=== PATIENT | female | born 1945 | race Caucasian/White ===

== ENCOUNTER 2023-11-27 08:32 | Emergency (ER) | payer MEDICARE, MEDICAID, SELFPAY ==
[2023-11-27 08:46] VITALS: BP 141/84; PULSE 80; RESP 16; TEMP 36.6; O2SAT 96; BMI 23.8
--- NOTE | 2023-11-27 09:41 | ED_ITS ---
HPI - General Adult General Chief complaint: Upper Respiratory Symptoms Stated complaint: cough Time Seen by Provider: 11/27/23 09:14 History of Present Illness HPI narrative: patient complains of 2 weeks of runny nose and mild cold or allergy symptoms with a cough that developed several days ago and is getting worse with mild sputum, no shortness of breath no chest pain no dizziness no confusion no sore throat no difficulty swallowing no leg pain no calf swelling no leg swelling no abdominal pain no nausea vomiting or diarrhea Related Data Previous Rx's ?Medication ?Instructions ?Recorded benzonatate 200 mg capsule 200 mg PO BID PRN cough #14 caps 11/27/23 doxycycline hyclate 100 mg tablet 100 mg PO BID #14 tabs 11/27/23 Allergies Allergy/AdvReac Type Severity Reaction Status Date / Time azithromycin Allergy Facial Verified 11/27/23 08:48 Swelling bee pollen [bee stings] Allergy Anaphylaxis Verified 11/27/23 08:48 PMF Past Medical History Source: nursing notes reviewed Social History Social History Advance Directives: No Advance Directives Information Provided: No Physical Exam ED Vital Signs: Vital Signs - 24 hr 11/27/23 08:46 11/27/23 09:51 Temperature 97.9 F 97.9 F Pulse Rate 80 80 Respiratory Rate 16 16 Blood Pressure 141/84 H 141/84 H Pulse Oximetry 96 96 Oxygen Delivery Method Room Air Room Air BMI result Body Mass Index 23.8 general appearance no distress comfortable cooperative speaking full sentences The eyes no redness or discharge The pharynx is clear no redness swelling or exudate voice normal The neck is supple Chest is clear to auscultation with full symmetrical equal breath sounds Heart no murmur Extremities full range motion x4 Course Course Course Narrative: COVID flu and chest x-ray were ordered but patient refused them as she had some where to go She is very well-appearing hand and understands why I recommended the test but she feels she has to go and she is prescribed an antibiotic for bronchitis She has an aqac-ooz-[id number] allergy medicine at home, she asked for Tessalon Perles and was given a prescription Well-appearing ambulates easily breathing comfortably and discharged Discharge Plan Discharge Clinical Impression: Bronchitis, Allergies Patient Disposition: Home, Self-Care Additional Instructions: we are treating for bronchitis and allergies You already have an allergy medicine at home so continue taking that, you can use Tessalon Perles for cough, as your cold is developing into a worsening cough I prescribed doxycycline it clean for bronchitis, antibiotic Return any time for difficulty breathing any worse condition or any concerns Today her lungs were clear and her vital signs including oxygen level were normal Prescriptions: New doxycycline hyclate 100 mg tablet 100 mg PO BID Qty: 14 0RF benzonatate 200 mg capsule 200 mg PO BID PRN (Reason: cough) Qty: 14 0RF Discharge Date/Time: 11/27/23 09:51 Print Language: Wallisian
--- NOTE | 2023-11-27 09:43 | PC.NURSE ---
pt refusing for swabs to be obtained/xray to be completed. provider notified/aware.
--- NOTE | 2023-11-27 09:50 | PC.NURSE ---
pt received script from ED provider. provider went over d/c paperwork. pt left facility.
[2023-11-27 09:51] VITALS: BP 141/84; PULSE 80; RESP 16; TEMP 36.6; O2SAT 96
== END 2023-11-27 09:54 | disposition home or self-care (01) ==
PROVIDERS: Emergency Provider Student in an Organized Health Care Education/Training Program
DX: J40 Bronchitis, not specified as acute or chronic (principal); J30.89 Other allergic rhinitis; R05.9 Cough, unspecified
CPT/HCPCS: 99282; 99283

== ENCOUNTER 2025-01-30 10:02 | Emergency (ER) | payer MEDICARE, MEDICAID, SELFPAY ==
--- NOTE | ~2025-01-30 | CT_ITS ---
EXAMINATION: CT ABDOMEN PELVIS WITHOUT IV CONTRAST HISTORY: upper abd pain x2 wks. COMPARISON: There are no prior studies available for comparison. TECHNIQUE: CT scan of the abdomen and pelvis was performed without contrast using standard departmental protocol. Coronal and sagittal reformatted images were generated and reviewed. Oral contrast material was not administered at the request of the referring physician. This CT exam was performed with one or more of the following dose reduction techniques: automated exposure control, adjustment of the mA and/or kV according to patient size, use of iterative reconstruction technique. DLP: 373 mGy-cm FINDINGS: LOWER CHEST: The visualized lung bases are clear. There is no pleural effusion. CARDIOVASCULATURE: The heart is normal in size. There is no pericardial effusion. LIVER: The liver is normal in size and contour. There is a subcentimeter hypodensity in the left lobe is small to accurately characterize. GALLBLADDER / BILE DUCTS: The gallbladder is unremarkable. There is no intra or extrahepatic biliary ductal dilatation. SPLEEN: The spleen is normal in size and has an unremarkable unenhanced appearance. PANCREAS: The pancreas has an unremarkable unenhanced appearance. ADRENAL GLANDS: Unremarkable. KIDNEYS/RETROPERITONEUM: No renal calculi are identified. There is no hydronephrosis. LYMPH NODES: No retroperitoneal lymphadenopathy is identified in the abdomen or pelvis. VASCULATURE: The abdominal aorta is normal in caliber. MESENTERY/PERITONEUM: No free fluid. No masses. There is no free intraperitoneal gas. STOMACH: There is a small hiatal hernia. SMALL BOWEL: The small bowel is normal in caliber. COLON: There is a large amount of stool throughout the colon. APPENDIX: The appendix is not seen, however no inflammatory changes are seen adjacent to the cecum. URINARY BLADDER/PELVIC ORGANS: The urinary bladder is unremarkable. The uterus has an unremarkable unenhanced appearance. 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 There is an old fracture deformity of the right pubic symphysis. CT/CT abdomen pelvis wo IV con IMPRESSION: Small hiatal hernia. Large amount of stool throughout the colon. Electronically signed by: Stephen Porter MD 01/30/2025 12:06 PM EDT
[2025-01-30 10:05] VITALS: BP 202/84; PULSE 92; RESP 19; TEMP 36.6; O2SAT 98; BMI 24.1
[2025-01-30 10:33] VITALS: BP 152/85; PULSE 89; RESP 16; O2SAT 96
--- NOTE | 2025-01-30 10:40 | PC.NURSE ---
Pt comes to ED today with c/ severe bloating x2 weeks after eating and decrease in BM volume. She reports she typically has very healthy BMs but she describes her current BMs as pellets. She denies trying any OTC medications for her GI symptoms as she fears this would make her symptoms worse. She also reports increased stress and anxiety in her life lately and feels this may be the cause of her symptoms. She denies n/v. She reports she has not changed her eating habits and has not had difficulty eating or drinking. A&Ox3 VSS Skin is warm and dry Breaths and speech are even and unlabored. NAD at this time. Awaiting ED provider
--- NOTE | 2025-01-30 11:18 | ECG_ITS ---
Test Reason : epigastric pain Blood Pressure : */* mmHG Vent. Rate : 74 BPM Atrial Rate : 74 BPM P-R Int : 180 ms QRS Dur : 84 ms QT Int : 382 ms P-R-T Axes : 42 -12 16 degrees QTcB Int : 424 ms Normal sinus rhythm Moderate voltage criteria for LVH, may be normal variant ( R in aVL , Chuy product ) Borderline ECG No previous ECGs available Referred By: Amairani Ware Electronically Signed By: ISAI SHEPPARD MD
--- NOTE | 2025-01-30 11:19 | ED_ITS ---
HPI - Abdominal Pain General Chief Complaint: Abdominal Pain Stated Complaint: Abd bloating Time Seen by Provider: 01/30/25 11:08 Source: patient Mode of arrival: ambulatory Limitations: no limitations History of Present Illness ED Provider: DR. Ware HPI narrative: 79-year-old female walked into the emergency department for evaluation of upper abdominal pain started 2 weeks ago pain is described as discomfort in the epigastric and upper abdomen area after food patient feels bloated after every meals she eat, patient also noted change in her bowel movement that is becoming more frequent and small, no change in the stool color last bowel movement was this morning, patient is passing flatus normally, no nausea, no vomiting, no fever, no weight loss, no dysuria, no frequency urination, no blood in the urine. No CP, no SOB. Past abdominal surgery significant for appendectomy. Patient is from [facility] in [place] visiting her brother for short time then going back home, Patient thinks that her symptoms is related to life stress and patient currently is going through stress. Related Data Previous Rx's ?Medication ?Instructions ?Recorded benzonatate 200 mg capsule 200 mg PO BID PRN cough #14 caps 11/27/23 doxycycline hyclate 100 mg tablet 100 mg PO BID #14 ta bs 11/27/23 Allergies Allergy/AdvReac Type Severity Reaction Status Date / Time bee pollen (bee stings) Allergy Anaphylaxis Verified 11/27/23 08:48 erythromycin base Allergy Unknown Verified 01/30/25 10:07 Review of Systems Review of Systems All other systems are reviewed and are negative Constitutional: Reports as per HPI and Reports no additional constitutional complaints Eyes: Reports as per HPI and Reports no additional eye complaints Reports system reviewed and no additional complaints, except as documented Cardiovascular: Reports as per HPI and Reports no additional cardiovascular complaints Respiratory: Reports as per HPI and Reports no additional respiratory complaints Gastrointestinal: Reports as per HPI and Reports no additional gastrointestinal complaints Genitourinary: Reports no additional female genitourinary complaints Musculoskeletal: Reports no additional musculoskeletal complaints Skin/Breast: Reports system reviewed and no additional complaints, except as docu Psychiatric: Reports no additional psychiatric complaints Endocrine: Reports no additional endocrine complaints Hematologic/Lymphatic: Reports no additional hematologic/lymphatic complaints Allergic/Immunologic: Reports no additional allergic/immunologic complaints Reports system reviewed and no additional complaints, except as documented and Reports Abnormal speech present [facility] Social History Social History Smoked in Last 30 Days: No Use of substances other than those prescribed or required for medical reasons: No Advance Directives: No Advance Directives Information Provided: No Do you have a plan to hurt others: No Plan Physical Exam ED Vital Signs: Vital Signs - 24 hr 01/30/25 10:05 01/30/25 10:33 Temperature 98 F Pulse Rate 92 89 Respiratory Rate 19 16 Blood Pressure 202/84 H 152/85 H Pulse Oximetry 98 96 Oxygen Delivery Method Room Air Room Air BMI result Body Mass Index 24.1 Vital signs have been reviewed and appear to be correct. Blood pressure elevated. Heart rate normal. Respiratory rate normal. Temperature normal. Oxygen saturation normal. Appearance: Alert. Oriented X3. No acute distress. Head: Normal external exam. Normocephalic. Atraumatic. No Ruth signs noted. No raccoon eyes noted Eyes: PERRLA. EOMI. Conjunctiva and sclera normal. Eyelids normal. ENT: TM's Normal. Pharynx normal. Uvula midline. Moist mucous membranes. No trismus noted. No drooling noted. No muffled voice noted. Neck: Normal inspection. Neck supple. FROM. No adenopathy. Thyroid Normal. No meningeal signs. No neck mass noted. CVS: Normal heart rate and rhythm. Heart sound normal. No murmurs noted. Pulses normal throughout. Respiratory: No respiratory distress. Painless inspiration. Breath sounds normal. No wheezes/rales/rhonchi noted. Chest nontender. No accessory muscle usage noted or decreased air movement noted. Abdomen: Soft and nontender. Bowel sounds normal in all 4 quadrants. No distention noted. No organomegaly noted. No visible injury noted. Back: No CVA tenderness. Full range of motion noted. Skin: Skin warm and dry. Normal skin color. Normal skin turgor. No rashes/lesions/lacerations noted. Extremities: No lower extremity edema. Extremities exhibit normal range of motion. Extremities nontender. Neuro: Oriented X 3. Cranial nerve exam: II-XII are grossly intact No motor deficit. No sensory deficit. Reflexes normal. Course Reevaluation(s) Reevaluation #1: Two weeks of change bowel movement and upper abdominal pain after meals, labs are unremarkable today, CT abdomen pelvis did not reveal underlying cause of patient's symptoms, patient also was ruled out for ACS which is extremely unlikely to be diagnosis. Instructed to follow-up with her PCP and get GI referral for possible endoscopy study as an outpatient when patient go back home. CT reveals possible constipation. Patient was instructed take MiraLax. Time: 13:19 Medical Decision Making Differential Diagnosis Differential Diagnoses: The differential diagnosis associated with the presentation includes ( Acute gastritis, colitis, diverticulitis, ACS, UTI, pyelonephritis, electrolyte derangement, severe anemia, kidney stone , constipation.) Admission/Observation Consideration of admission/observation: Escalation of care including admission/observation considered Lab Data MDM Lab Attestation statement: I reviewed the patient's lab results. 01/30/25 11:43 01/30/25 11:43 Labs: Lab Results 01/30/25 01/30/25 Range/Units 11:43 12:55 WBC 6.3 (4.8-10.8) X10*3/uL RBC 4.25 (4.20-5.50) X10*6/uL Hgb 13.0 (12.0-16.0) g/dl Hct 37.3 (37.0-47.0) % MCV 87.8 (80.0-98.0) fL MCH 30.6 (27.0-33.0) pg MCHC 34.9 (31.0-35.0) g/dl RDW 12.2 (11.0-16.0) % Plt Count 276 (160-400) X10*3/uL MPV 8.7 L (9.4-12.3) fL Immature Gran % (Auto) 0.2 (0.0-0.4) % Neut % (Auto) 69.9 (45-73) % Lymph % (Auto) 22.8 (20-40) % [place] % (Auto) 5.7 (2-11) % Eos % (Auto) 0.8 (0-4) % Baso % (Auto) 0.6 (0-2) % Lymph # (Auto) 1.4 (1.2-4.9) X10*3/uL [place] # (Auto) 0.4 (0.1-1.2) X10*3/uL Eos # (Auto) 0.1 (0.0-0.4) X10*3/uL Baso # (Auto) 0.0 (0.0-0.2) X10*3/uL Abs Immat Gran (auto) 0.01 (0.00-0.03) X10*3/uL Absolute Neuts (auto) 4.4 (2.0-8.3) x10*3/uL Absolute Nucleated RBC 0.000 (0.0-0.012) X10*3/uL Nucleated RBC % (auto) 0.0 (0.0-0.2) /100WBC Sodium 137 (135-145) mmol/L Potassium 4.4 (3.3-5.1) mmol/L Chloride 103 (96-108) mmol/L Carbon Dioxide 26 (22-29) mmol/L Anion Gap 12 (12-20) BUN 18 H (9-16) mg/dL Creatinine 0.97 (0.5-1.4) mg/dL Estim Creat Clear Calc 38.3 Estimated GFR 56 Random Glucose 94 (60-115) mg/dL Calcium 9.9 (8.4-10.2) mg/dL Total Bilirubin 0.3 (0.0-1.0) mg/dL Direct Bilirubin 0.1 (0.0-0.5) mg/dL AST 34 H (5-31) U/L ALT 24 (0-31) U/L Alkaline Phosphatase 40 (39-117) U/L Troponin I High Sens 4.2 (<3.5-17.0) ng/L Total Protein 7.5 (6.5-8.0) g/dL Albumin 4.7 (3.5-5.0) g/dL Lipase 24 (8-78) U/L Urine Color Yellow Urine Appearance Clear Urine pH 6.0 (5.0-9.0) Ur Specific [place] <= 1.005 (1.005-1.025) Urine Protein Negative (Neg-Trace) mg/dL Urine Glucose (UA) Negative (Negative) mg/dL Urine Ketones Negative (Negative) mg/dL Urine Blood Negative (Negative) Urine Nitrite Negative (Negative) Ur Leukocyte Esterase Negative (Negative) Independent Interpretation I performed an independent interpretation of an: CT Scan ( Abdomen pelvis:Small hiatal hernia. Large amount of stool throughout the colon.) Radiology Impression Discussion of test interpretation with radiology: I have reviewed the radiologist's reading. Discharge Plan Discharge Clinical Impression: Constipation Patient Disposition: Home, Self-Care Instructions: Constipation (ED) Additional Instructions: Take [id number] MiraLax as instructed. Drink plenty of fluids. Follow-up with the PCP and request GI outpatient evaluation. Prescriptions: No Action doxycycline hyclate 100 mg tablet 100 mg PO BID Qty: 14 0RF benzonatate 200 mg capsule 200 mg PO BID PRN (Reason: cough) Qty: 14 0RF Print Language: Northern Irish
[2025-01-30 11:49] LABS: MANUAL DIFF FLAG NO
[2025-01-30 11:52] LABS: Hematocrit 37.3 % (37.0-47.0); Hemoglobin 13.0 g/dl (12.0-16.0); Imm Gran Abs Auto 0.01 X10*3/uL (0.00-0.03); Imm Gran Pct Auto 0.2 % (0.0-0.4); Lymphocytes Absolute Auto 1.4 X10*3/uL (1.2-4.9); Mean Corpuscular HGB Conc 34.9 g/dl (31.0-35.0); Mean Corpuscular Hemoglobin 30.6 pg (27.0-33.0); Mean Corpuscular Volume 87.8 fL (80.0-98.0); NRBC Abs Auto 0.000 X10*3/uL (0.0-0.012); NRBC Pct Auto 0.0 /100WBC (0.0-0.2); Platelet Count 276 X10*3/uL (160-400); Red Blood Count 4.25 X10*6/uL (4.20-5.50); White Blood Count 6.3 X10*3/uL (4.8-10.8)
[2025-01-30 12:07] LABS: Alanine Aminotransferase 24 U/L (0-31); Albumin Level 4.7 g/dL (3.5-5.0); Alkaline Phosphatase 40 U/L (39-117); Anion Gap 12 (12-20); Aspartate Amino Transferase 34 U/L (5-31); Blood Urea Nitrogen 18 mg/dL (9-16); Calcium 9.9 mg/dL (8.4-10.2); Carbon Dioxide 26 mmol/L (22-29); Chloride 103 mmol/L (96-108); Creatinine Clr Calc Pharmacy 38.3; Estimated Glomerular Filt Rate 56; Lipase 24 U/L (8-78); Potassium 4.4 mmol/L (3.3-5.1); Sodium 137 mmol/L (135-145); Total Protein 7.5 g/dL (6.5-8.0)
[2025-01-30 12:14] LABS: Troponin-I High Sensitivity 4.2 ng/L (<3.5-17.0)
[2025-01-30 13:09] LABS: Appearance Urine Clear; Glucose Urine UA Negative (Negative); PH 6.0 (5.0-9.0); Specific Gravity - Urine <= 1.005 (1.005-1.025)
[2025-01-30 13:32] VITALS: BP 00/00; PULSE 0; RESP 0; TEMP -17.7; TEMP 0; O2SAT 0
== END 2025-01-30 13:33 | disposition home or self-care (01) ==
PROVIDERS: Emergency Provider Emergency Medicine
DX: K59.00 Constipation, unspecified (principal); R10.13 Epigastric pain; Z79.899 Other long term (current) drug therapy
CPT/HCPCS: 36415; 74176; 80048; 80076; 81003; 83690; 84484; 85025; 93005; 99284; 99285

== ENCOUNTER → 2025-01-30 11:18 | Outpatient (BNV) | payer MEDICARE, MEDICAID, SELFPAY | PROVIDERS: Emergency Provider Emergency Medicine; Visit Provider Radiology Diagnostic Radiology | DX: R10.9 Unspecified abdominal pain (principal) | CPT/HCPCS: 74176 ==

== ENCOUNTER → 2025-01-30 11:18 | Outpatient (BNV) | payer MEDICARE, MEDICAID, SELFPAY | PROVIDERS: Emergency Provider Emergency Medicine; Visit Provider Internal Medicine Cardiovascular Disease | DX: R10.13 Epigastric pain (principal) | CPT/HCPCS: 93010 ==

== ENCOUNTER 2025-04-22 12:27 | Emergency (ER) | payer MEDICARE, MEDICAID, SELFPAY ==
--- NOTE | 2025-04-22 12:44 | ED.GENADULT ---
HPI - General Adult General Chief complaint: General Medical Stated complaint: Med refill Time Seen by Provider: 04/22/25 12:46 Source: patient, RN notes reviewed and old records reviewed Mode of arrival: ambulatory Limitations: no limitations History of Present Illness ED Provider: Wilbert [facility] narrative: Patient is a 79 year old female with history of HTN presenting to the ED requesting a refill of her losartan 100mg daily. States this was previously prescribed by her PCP, Dr. Maryann Marquez, in [place]. She recently moved here, and was given several refills but is almost out. Has not run out yet and still has some left. Has been looking for a new PCP but does not have any scheduled appointments yet. Denies any current physical complaints. Does report feeling anxious about not finding a new PCP and possibly running out of her medications. complaint: med refill Related Data Previous Rx's ?Medication ?Instructions ?Recorded benzonatate 200 mg capsule 200 mg PO BID PRN cough #14 caps 11/27/23 doxycycline hyclate 100 mg tablet 100 mg PO BID #14 tabs 11/27/23 losartan 100 mg tablet 100 mg PO DAILY #90 tabs 04/22/25 Allergies Allergy/AdvReac Type Severity Reaction Status Date / Time bee pollen (bee stings) Allergy Anaphylaxis Verified 04/22/25 12:47 erythromycin base Allergy Unknown Verified 04/22/25 12:47 Review of Systems Review of Systems: as per hpi Yes all other systems are reviewed and are negative Constitutional: Constitutional: Reports as per HPI [facility] Social History Social History Advance Directives: No Advance Directives Information Provided: Yes Do you have a plan to hurt others: No Plan Physical Exam ED Vital Signs: Vital Signs - 24 hr 04/22/25 12:45 04/22/25 12:55 Temperature 97.1 F Pulse Rate 77 Respiratory Rate 16 Blood Pressure 204/89 H 153/63 H Pulse Oximetry 97 Oxygen Delivery Method Room Air BMI result Body Mass Index 23.5 Vital signs have been reviewed and appear to be correct. Blood pressure hypertensive initially, improved without intervention. Heart rate normal. Respiratory rate normal. Temperature normal. Oxygen saturation normal. Const General: cooperative, healthy appearing and no acute distress Orientation/consciousness: oriented to person, oriented to place, oriented to time and patient oriented x3 Limitations: no limitations [facility] Head: Yes normocephalic and Yes atraumatic Ears: external ears normal General nose exam: Normal external nose present Face and sinus: Yes face symmetric Mouth: oropharynx normal and moist mucous membranes Throat: Yes uvula midline Eyes Pupils: Equal, round and reactive pupils present Neck Neck: Yes normal visual inspection and Yes supple Resp Effort & Inspection: normal respiratory effort and able to speak in complete sentences Auscultation: clear to auscultation bilaterally Cardio Rate: regular rate Rhythm: regular rhythm Heart sounds: S1 normal heart sound present and S2 normal heart sound present GI Palpation (GI): Soft to palpation and nontender Auscultation: normoactive bowel sounds General: Yes no CVA tenderness Back/Spine/Pelvis Back: no CVA tenderness Skin General skin exam: elasticity normal and turgor normal Neuro General: oriented to person, oriented to place, oriented to time, patient oriented x3, moves all extremities, no focal motor deficits and CN's II-XI intact bilaterally Cranial nerves: Yes Equal, round and reactive pupils present Cognition (Neuro): normal cognition Extrem General: Yes full ROM, Yes no pedal edema and Yes no calf tenderness Psych Mental Status: mental status grossly normal Affect: normal affect Thought process: Normal thought process present Medical Decision Making Medical Decision Making MDM Narrative: Patient is a 79 year old female with history of HTN presenting to the ED requesting a refill of her losartan 100mg daily. On exam patient is awake, A+Ox3, VS WNL, afebrile, normal neurological exam without focal deficits, physical exam findings as above. Given reported symptoms and physical exam findings, initial differential includes but is not limited to hypertension, out of medications. Patient is asymptomatic, initially hypertensive likely due to anxiety as her BP improved without intervention after being in the ED for a short time. She is actively seeking a new PCP. Will provide patient with a 90-day supply and patient was provided with a list of PCPs in the area accepting new patients. Return precaution discussed. Patient verbalized understanding of and agreement with plan. Differential Diagnosis Differential Diagnoses: The differential diagnosis associated with the presentation includes as per mdm Admission/Observation Consideration of admission/observation: Escalation of care including admission/observation considered Patient would have been admitted to the hospital and transferred to appropriate facility had their clinical presentation warranted hospital admission. External Record Review External record reviewed: Inpatient record, Office record and Outpatient record Prescription Management I considered prescription management with: Other Discharge Plan Discharge Clinical Impression: Hypertension Qualifiers: Hypertension type: unspecified Qualified Code(s): I10 - Essential (primary) hypertension Patient Disposition: Home, Self-Care Instructions: Hypertension (ED) Additional Instructions: You presented to the emergency department today for a refill of your blood pressure medication. You have been given a 90-day supply today but it is important that you establish care with a primary care provider as soon as possible. Use the resources provided to you today to find a new PCP in the area. Return to the emergency department if you develop chest pain, shoretness of breath, severe headache, vision changes, dizziness, lightheadedness, fainting, or any other new or concerning symptoms. Prescriptions: New losartan 100 mg tablet 100 mg PO DAILY Qty: 90 0RF No Action doxycycline hyclate 100 mg tablet 100 mg PO BID Qty: 14 0RF benzonatate 200 mg capsule 200 mg PO BID PRN (Reason: cough) Qty: 14 0RF Referrals: [facility] Primary Care, Maya [Provider Group, Internal Medicine] [facility] Primary Care, Елена [Provider Group, Internal Medicine] Daniel Silva MD [Physician, Internal Medicine] Print Language: British
[2025-04-22 12:45] VITALS: BP 204/89; PULSE 77; RESP 16; TEMP 36.2; O2SAT 97; BMI 23.5
[2025-04-22 12:55] VITALS: BP 153/63
[2025-04-22 14:50] VITALS: BP 153/63; PULSE 77; RESP 16; TEMP 36.2; O2SAT 97
== END 2025-04-22 14:51 | disposition home or self-care (01) ==
PROVIDERS: Emergency Provider Emergency Medicine
DX: Z76.0 Encounter for issue of repeat prescription (principal); I10 Essential (primary) hypertension
CPT/HCPCS: 99282; 99283

== ENCOUNTER 2025-07-02 09:44 | Outpatient (AMB) | payer MEDICARE, SELFPAY ==
--- NOTE | 2025-07-02 09:48 | A.OFFPC_ITS ---
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: No Accompanied by: Self / Same As Patient Allergies bee pollen (bee stings) Allergy (Verified 07/02/25 09:48) Anaphylaxis erythromycin base Allergy (Verified 07/02/25 09:48) Unknown Medication List - Last Reconciled 07/02/25 by Lonnie Ayers MD ascorbic acid (vitamin C) mg PO calcium carbonate-vitamin D3 600 mg-25 mcg (1,000 unit) caps PO BID cholecalciferol (vitamin D3) 25 mcg PO DAILY cod liver oil 1 cap PO BID coenzyme Q10 (Ultra CoQ10) 75 mg PO DAILY epinephrine (EpiPen) 0.3 mg IM Q15M PRN losartan 100 mg PO DAILY vitamin B complex 1 cap PO DAILY Tobacco use date assessed: 07/02/25 Fall risk assessment: No Falls in past year Last assessed Fall Risk: 07/02/25 Dental Screening Dental Screen Date: 07/02/25 Did you have a dental visit in the last 12 months?: Yes Did you have a dental problem in the last 6 months where you did not have access to dental care?: No Was dental information given to patient?: Patient has dentist HPI HPI Comments History of Present Illness Details The patient is a 80 year old female with PMh of osteoporosis, HTN, GERD, breast cancer (unclear which type) presenting to [facility] after moving back to the area from [place]. Her previous medical records were requested but have not yet been received. The patient has a history of hypertension, for which she takes losartan 100 mg d aily. She reports her blood pressure typically runs around 136 mmHg, but can go up to 148 mmHg, and a recent reading was 156/90 mmHg. She recently went to the emergency room for a losartan refill. She has a diagnosis of osteoporosis and reports her bones are brittle. Her prior treatment included Prolia injections every six months which she received from an meteorological technician, but she is currently behind on her injections and her bone density scan. She takes [id number] calcium and vitamin D. Past surgical history is significant for bilateral knee replacements about five years ago, a shattered tibia and fibula requiring repair, a ruptured appendix, and breast cancer involving two small areas for which she no longer takes medication. She is scheduled for cataract surgery. She reports seasonal allergies and an allergy to yellow jacket stings, for which she has an EpiPen. She has a known severe allergy to the flu shot and has been advised by a pharmacist not to take it. Her last tetanus shot was approximately three years ago. Her current medications include losartan, and biup-jki-shvjcfo vitamin C, vitamin D, cod liver oil, and Coenzyme Q10. [facility] Medical History (Updated 07/02/25 @ 11:17 by Lonnie Ayers MD) Hypertension Social History Housing: Apartment Patient Tobacco Use Status: Former Tobacco user Tobacco use type: Cigarette Years Smoked: 20 years e-Cigarette/Vaping Use: Never Used service: No Current occupational status: retired Cognitive needs: No Hearing needs: No Vision needs: No Review of Systems Const Details: Positives besides what was mentioned in HPI are in BOLD Constitutional: No Weight Change, No Fever, No Chills, No Night Sweats, No Fatigue, No Malaise ENT/Mouth: No Hearing Changes, No Ear Pain, No Nasal Congestion, No Sinus Pain, No Hoarseness, No sore throat, No Rhinorrhea, No Swallowing Difficulty Eyes: No Eye Pain, No Swelling, No Redness, No Foreign Body, No Discharge, No Vision Changes Cardiovascular: No Chest Pain, No SOB, No PND, No Dyspnea on Exertion, No Orthopnea, No Claudication, No Edema, No Palpitations Respiratory: No Cough, No Sputum, No Wheezing, No Smoke Exposure, No Dyspnea Gastrointestinal: No Nausea, No Vomiting, No Diarrhea, No Constipation, No Pain, No Heartburn, No Anorexia, No Dysphagia, No Hematochezia, No Melena, No Flatulence, No Jaundice Genitourinary: No Dysmenorrhea, No DUB, No Dyspareunia, No Dysuria, No Urinary Frequency, No Hematuria, No Urinary Incontinence, No Urgency, No Flank Pain, No Urinary Flow Changes, No Hesitancy Musculoskeletal: No Arthralgias, No Myalgias, No Joint Swelling, No Joint Stiffness, No Back Pain, No Neck Pain, No Injury History Skin: No Skin Lesions, No Pruritis, No Hair Changes, No Breast/Skin Changes, No Nipple Discharge Neuro: No Weakness, No Numbness, No Paresthesias, No Loss of Consciousness, No Syncope, No Dizziness, No Headache, No Coordination Changes, No Recent Falls Psych: No Anxiety/Panic, No Depression, No Insomnia, No Personality Changes, No Delusions, No Rumination, No SI/HI/AH/VH, No Social Issues, No Memory Changes, No Violence/Abuse Hx., No Eating Concerns Heme/Lymph: No Bruising, No Bleeding, No Transfusions History, No Lymphadenopathy Endocrine: No Polyuria, No Polydipsia, No Temperature Intolerance Physical exam (Primary Care) Vital Signs: Last Vital Signs Temp 98 F 07/02/25 09:49 Pulse 71 07/02/25 09:49 Resp 18 07/02/25 09:49 BP 156/90 H 07/02/25 09:49 Pulse Ox 98 07/02/25 09:49 Oxygen Delivery Method Room Air 07/02/25 09:49 BMI result Body Mass Index 24.7 Tobacco/Smoking Status: Tobacco use Status Tobacco use date assessed 07/02/25 07/02/25 09:51 Patient Tobacco Use Status Former Tobacco user 07/02/25 10:03 Tobacco use type Cigarette 07/02/25 10:03 e-Cigarette/Vaping Use Never Used 07/02/25 10:03 Results Reviewed Results Reviewed: - Labs: Recent labs from an emergency room visit were noted but not detailed. - EKG: Findings from a recent emergency room visit suggested possible left ventricular hypertrophy. - Imaging: A CT scan of the abdomen and pelvis from January showed a small hernia and a significant amount of stool burden. Coding Level of Care Code New Pt Level 4 (28957) Diagnoses Healthcare maintenance Z00.00 Hypertension I10 Hypertension type: unspecified Osteoporosis M81.0 Pre-op evaluation Z01.818 Neck pain M54.2 LVH (left ventricular hypertrophy) I51.7 Time Spent (min) 45 Assessment & Plan Assessment & Plan (1) Healthcare maintenance: Code(s): Z00.00 - Encounter for general adult medical examination without abnormal findings Category: Medical Plan: CBC, CMP, Lipid panel, A1C, TSH w T4. Ordered. Shingles 2 doses when >50 yo. Declined. COVID: two doses. Completed. Tdap: last done in 2021. Repeat due in 2031. Pneumococcal: >50 yo. 18-49 with CKD, lung disease, weakened immune system, Heart disease, DM, cochlear implant. Declined. Flu vaccine: Allergic. Colonoscopy: 45-75. Aged out. AAA: 65 -75. [address]ged [address] CT lun - 80. Aged out. HPV: Aged out. HIV: Ordered. HCV: Ordered. Dexa: Ordered. Known osteoporosis. On Prolia injections. Endocrinology referral placed to continue manage Prolia injections. Mammogram: 3 years was her last Mammogram. Prior history of Left breast cancer which was excised surgically. We will get one last mammogram as she is high risk for reccurence. (2) Hypertension: Code(s): I10 - Essential (primary) hypertension Category: Medical Qualifiers: Hypertension type: unspecified Qualified Code(s): I10 - Essential (primary) hypertension Plan: - Patient's blood pressure remains elevated despite treatment with losartan 100 mg daily. - Will add amlodipine 2.5 mg once daily to her regimen. - The patient was advised to continue her losartan and take both medications at the same time. - Recommended the patient keep a blood pressure log at home and to bring it with her next visit. (3) Osteoporosis: Code(s): M81.0 - Age-related osteoporosis without current pathological fracture Category: Medical Plan: - The patient has a history of osteoporosis and is overdue for her Prolia injection and a bone density scan. - A referral will be placed to an meteorological technician for continued management. - An order for a DEXA scan will be placed. - Advised to continue pjna-ihf-uxvyxxr calcium and vitamin D. (4) Pre-op evaluation: Comment: Cataract Code(s): Z01.818 - Encounter for other preprocedural examination Category: Medical Plan: - The patient is scheduled for cataract surgery and requires pre-operative clearance. - An EKG will be ordered as part of the pre-operative workup. - Medical clearance for the surgery will be provided upon review of labs and EKG. (5) Neck pain: Code(s): M54.2 - Cervicalgia Category: Medical Plan: Patient has pain with active and passive rotation of her neck. Due to pain with movement, I ordered an Xray to rule out fracture in the neck, especially in the setting of Osteoporosis. (6) LVH (left ventricular hypertrophy): Code(s): I51.7 - Cardiomegaly Category: Medical Plan: Reported on EKG from 01/2025. Patient denies any current symptoms or signs of HF (lower extremity edema, SOB, chest pain, or cough). Plan I introduced myself as the patient's new primary care physician. We discussed her history of hypertension and that her blood pressure remains elevated on her current medication. I explained the plan to add amlodipine 2.5 mg and recomm ended she monitor her blood pressure at home. We reviewed her history of osteoporosis and her previous treatment with Prolia injections. I informed her that I would place a referral to an meteorological technician for continued management, as well as orders for a DEXA scan and mammogram. I discussed the need for routine health screening labs, including a lipid panel, A1C, and a one-time screening for HIV and hepatitis C, which she agreed to. We also discussed providing pre-operative clearance for her upcoming cataract surgery, for which I am ordering labs and an EKG. I will provide a refill for her EpiPen for her yellow jacket allergy. The patient was informed to let the office know if there are any issues with engineering specialist technician appointments so that we can assist. Orders: Orders XR DEXA axial skeleton Today Z12.31 - Encounter for screening mammogram for malignant neoplasm of breast MM screening mammo BI Today Z12.31 - Encounter for screening mammogram for malignant neoplasm of breast HIV Ab/Ag Today Z00.00 - Encounter for general adult medical examination without abnormal findings Complete Blood Count no Diff Today Z01.818 - Encounter for other preprocedural examination XR cervical spine 3V Today M54.2 - Cervicalgia Hemoglobin A1c Today Z00.00 - Encounter for general adult medical examination without abnormal findings Lipid Panel Today Z00.00 - Encounter for general adult medical examination without abnormal findings Hepatitis C Antibody Reflex Today Z00.00 - Encounter for general adult medical examination without abnormal findings TSH reflex Free T4 Today Z00.00 - Encounter for general adult medical examination without abnormal findings Comprehensive Met. Panel Today Z01.818 - Encounter for other preprocedural examination ECG 12 lead EKG Today H26.9 - Unspecified cataract Referrals Endocrinology Referral I10 - Essential (primary) hypertension, M81.0 - Age- related osteoporosis without current pathological fracture Medications: New epinephrine (EpiPen) for 2 doses 0.3 mg (0.3 mL) IM Q15M PRN 1 ea 3RF anaphylaxis vitamin B complex 1 cap PO DAILY 60 caps 3RF amlodipine 2.5 mg PO DAILY 60 tabs 3RF pantoprazole 20 mg PO DAILY 30 tabs 3RF Refilled losartan 100 mg PO DAILY 90 tabs 3RF Discontinued benzonatate Discontinued Reason: Patient Completed Course 200 mg PO BID PRN 14 caps 0RF cough doxycycline hyclate Discontinued Reason: Patient Completed Course 100 mg PO BID 14 tabs 0RF
[2025-07-02 09:49] VITALS: BP 156/90; PULSE 71; RESP 18; TEMP 36.6; O2SAT 98; BMI 24.7
== END 2025-07-02 10:45 | disposition home or self-care (01) ==
PROVIDERS: PCP Internal Medicine; Visit Provider Internal Medicine
DX: Z00.00 Encounter for general adult medical examination without abnormal findings (principal); I10 Essential (primary) hypertension; M81.0 Age-related osteoporosis without current pathological fracture; Z01.818 Encounter for other preprocedural examination; M54.2 Cervicalgia; I51.7 Cardiomegaly

== ENCOUNTER 2025-07-02 09:44 | Outpatient (REF) | payer MEDICARE, SELFPAY ==
--- NOTE | ~2025-07-02 | XR_ITS ---
EXAMINATION: XR CERVICAL SPINE CLINICAL INFORMATION: M54.2 - Cervicalgia COMPARISON: None available. TECHNIQUE: 3 views of the cervical spine were obtained. FINDINGS: There is maintained cervical lordosis. There is loss of C3-4, C5-6 and C6-C7 disc heights with mild ventral and posterior spondylosis. There is no visible acute fracture, dislocation or subluxation. The soft tissues are normal. XR/XR cervical spine 4V IMPRESSION: Mild degenerative disc changes with ventral spondylosis C4-C5 through C6-C7 disc levels. No visible acute fracture, dislocation or subluxation seen Electronically signed by: Luis Escobar MD 07/02/2025 11:50 AM EST
--- NOTE | 2025-07-02 11:30 | ECG_ITS ---
Test Reason : preop Blood Pressure : */* mmHG Vent. Rate : 69 BPM Atrial Rate : 69 BPM P-R Int : 178 ms QRS Dur : 80 ms QT Int : 384 ms P-R-T Axes : 60 -6 42 degrees QTcB Int : 411 ms Normal sinus rhythm Minimal voltage criteria for LVH, may be normal variant ( R in aVL ) Borderline ECG When compared with ECG of 30-Jan-2025 11:56, No significant change was found Referred By: Lonnie Ayers Electronically Signed By: RADHA ALVAREZ
== END 2025-07-02 09:45 | disposition home or self-care (01) ==
LOC: HO.XRAY 09:44
PROVIDERS: PCP Internal Medicine; Visit Provider Internal Medicine
DX: Z00.00 Encounter for general adult medical examination without abnormal findings (principal); Z01.818 Encounter for other preprocedural examination; H26.9 Unspecified cataract; I10 Essential (primary) hypertension; M81.0 Age-related osteoporosis without current pathological fracture; M54.2 Cervicalgia; I51.7 Cardiomegaly; Z96.653 Presence of artificial knee joint, bilateral
CPT/HCPCS: 72050; 93005; 99202

== ENCOUNTER → 2025-07-02 11:11 | Outpatient (BNV) | payer MEDICARE, SELFPAY | PROVIDERS: PCP Internal Medicine; Visit Provider Radiology Diagnostic Radiology | DX: M47.812 Spondylosis without myelopathy or radiculopathy, cervical region (principal); M50.321 Other cervical disc degeneration at C4-C5 level; M50.323 Other cervical disc degeneration at C6-C7 level | CPT/HCPCS: 72050 ==

== ENCOUNTER → 2025-07-02 11:30 | Outpatient (BNV) | payer MEDICARE, SELFPAY | PROVIDERS: PCP Internal Medicine; Visit Provider Internal Medicine | DX: Z01.818 Encounter for other preprocedural examination (principal) | CPT/HCPCS: 93010 ==

== ENCOUNTER 2025-07-03 07:45 | Outpatient (REF) | payer MEDICARE, SELFPAY ==
[2025-07-03 08:50] LABS: Hematocrit 38.5 % (37.0-47.0); Hemoglobin 13.1 g/dl (12.0-16.0); Mean Corpuscular HGB Conc 34.0 g/dl (31.0-35.0); Mean Corpuscular Hemoglobin 30.3 pg (27.0-33.0); Mean Corpuscular Volume 88.9 fL (80.0-98.0); NRBC Abs Auto 0.000 X10*3/uL (0.0-0.012); NRBC Pct Auto 0.0 /100WBC (0.0-0.2); Platelet Count 328 X10*3/uL (160-400); Red Blood Count 4.33 X10*6/uL (4.20-5.50); White Blood Count 5.6 X10*3/uL (4.8-10.8)
[2025-07-03 09:59] LABS: Alanine Aminotransferase 23 U/L (0-31); Albumin Level 4.5 g/dL (3.5-5.0); Alkaline Phosphatase 50 U/L (39-117); Anion Gap 14 (12-20); Aspartate Amino Transferase 30 U/L (5-31); Blood Urea Nitrogen 21 mg/dL (9-16); Calcium 10.1 mg/dL (8.4-10.2); Carbon Dioxide 26 mmol/L (22-29); Chloride 99 mmol/L (96-108); Cholesterol 229 mg/dL (<200); Estimated Glomerular Filt Rate 49; HDL Cholesterol 67 mg/dL (>40); Potassium 4.1 mmol/L (3.3-5.1); Sodium 135 mmol/L (135-145); Total Protein 7.6 g/dL (6.5-8.0); Triglycerides 87 mg/dL (<150)
[2025-07-03 10:08] LABS: HIV Num 1 0.08 S/CO (0.00-0.99); ~HepC Num1 0.09 S/CO (0.00-0.79); ~Hepatitis C Antibody Nonreactive (Nonreactive)
== END 2025-07-03 07:46 | disposition home or self-care (01) ==
LOC: HO.LAB 07:45
PROVIDERS: PCP Internal Medicine; Visit Provider Internal Medicine
DX: Z00.00 Encounter for general adult medical examination without abnormal findings (principal); Z13.6 Encounter for screening for cardiovascular disorders; Z13.29 Encounter for screening for other suspected endocrine disorder; Z13.1 Encounter for screening for diabetes mellitus; Z11.4 Encounter for screening for human immunodeficiency virus [HIV]; Z11.59 Encounter for screening for other viral diseases
CPT/HCPCS: 36415; 80053; 80061; 83036; 84443; 85027; 86803; 87389